=== PATIENT | male | born 1980 | race Hispanic/Latino ===

== ENCOUNTER 2024-06-15 22:25 | Emergency (ER) | payer OTHER ==
[~2024-06-15] VITALS: Ht 170.2 cm; Wt 113.4 kg
--- NOTE | 2024-06-15 22:30 | NUR ---
COVID, FLU AND STREP SWABS COLLECTED AND SENT
[2024-06-15 22:53] LABS: RAPID GROUP A STREP negative (NEGATIVE)
--- NOTE | 2024-06-15 22:54 | ERN ---
ED Note History of Present Illness Stated Complaint: HTN, HIGH BLOOD SUGAR, COUGH, CONGESTION Chief Complaint: Multiple Complaints Time Seen by MD: 22:48 Dictation: This is a 44-year-old male who presented to the emergency room stating that his blood pressure was high and sugar was high and he also has a cough and congestion. Apparently he started feeling sick since 06/13 2024 and developed a cough and chest congestion associated with generalized body aches and flu-like symptoms. He went to [place] where he was told that he had a blood pressure of 180 systolic and his sugar was also high but he does not recall all the details. Given that he came into get checked out He admits to small amounts of mucopurulent sputum but no hemoptysis. No new pets at home. His son was sick also Temperature was 100.6 pulse 103 respirations 20 blood pressure 101/82 with a pulse oximetry of 98% on room air He admits to being a daily cigarette smoker Allergies: Coded Allergies: No Known Allergies (Unverified Allergy, Unknown, 06/15/24) Home Meds Active Scripts Ipratropium/Albuterol Sulfate (Combivent Respimat Inhal [place]) 20 Mcg-100 Mcg/Ac tuation Aer.w.adap, 2 PUFF IH TID, #4 GM 0 Refills Prov:VIVIANA CORONEL MD 06/16/24 Prednisone (Prednisone) 50 Mg Tablet, 50 MG PO DAILY for 5 Days, #5 TAB 0 Refills Prov:VIVIANA CORONEL MD 06/16/24 Levofloxacin (Levofloxacin) 750 Mg Tablet, 1 TAB PO DAILY for 7 Days, #7 TAB 0 Refills Prov:VIVIANA CORONEL MD 06/16/24 Past Medical History Past Medical History: No Pertinent History Surgical History: None Social History: Smokers RN Note Reviewed/Agreed w/PFSH: Yes Review of System Dictation Constitutional: Negative for fever,chills, and weight loss, generalized body aches Eyes: Negative for injury, pain,redness, and discharge ENT: Negative for injury,pain or swelling Cardiovascular: Negative for chest pain, palpitations, and edema Respiratory: Negative for shortness of breath, positive cough, and wheezing, Abdomen/GI: Negative for abdominal pain, nausea, vomiting, diarrhea, and constipation Back: Negative for injury and pain : Negative for injury, bleeding and discharge MS/Extremity: Negative for injury and deformity Skin: Negative for rash, and discoloration Neuro: Negative for headache, weakness, numbness, tingling, and seizure Psych: Negative for suicide ideation, homicidal ideation, and hallucinations Initial Vital Sign VS Vital Signs Date Time Temp Pulse Resp B/P (MAP) Pulse Ox O2 Delivery O2 Flow Rate FiO2 06/15/24 22:27 100.6 103 20 101/82 98 Room Air 06/16/24 00:35 0 21 Physical Exam Dictation General: awake, alert, NAD Head/Face: Normocephalic, atraumatic Eyes: PERRL, EOMI, vision at baseline ENT: oral cavity clear, TMs clear, no signs of infection Neck: Trachea midline, supple, no nuchal rigidity Cardiovascular: RRR, normal S1/S2, No MRGs, no JVD Respiratory: Decreased breath sounds bilaterally with end expiratory wheezes bilaterally Abdomen: Soft, non-tender, non-distended, normal bowel sounds, no guarding or rebound. Skin: Warm, dry, normal turgor, no rash MS/Extremity: Pulses equal, no cyanosis, neurovascular intact, FROM Neuro: COAx4, GCS 15, strength 5/5, CN 2-12 intact, normal cerebellar exam, normal gait, Psych: Normal behavior, mood, and affect normal Extremities-trace edema without any palpable cords, Homans sign is negative Results (Laboratory/Radiology) Laboratory/Radiology Laboratory Tests Test 06/15/24 22:28 06/15/24 23:48 Influenza Type A Antigen Negative For Type A Influenza Type B Antigen Negative For Type B SARS-CoV-2, RNA, NAAT NEGATIVE SARS CoV-2 Group A Streptococcus Rapid negative (NEGATIVE) White Blood Count 7.8 K/uL (4.8-10.8) Red Blood Count 4.36 MIL/uL (4.50-6.20) L Hemoglobin 13.8 g/dL (14.0-18.0) L Hematocrit 41.3 % (42-54) L Mean Corpuscular Volume 94.7 fL (79-99) Mean Corpuscular Hemoglobin 31.7 pg (27.0-33.0) Mean Corpuscular Hemoglobin Concent 33.4 g/dL (32.0-36.0) Red Cell Distribution Width 13.1 % (11.0-15.5) Platelet Count 181 K/uL (130-400) Mean Platelet Volume 11.2 fL (7.5-10.5) H Immature Granulocyte % (Auto) 0.3 % (0-1) Neutrophils (%) (Auto) 57.7 % (40.0-77.0) Lymphocytes (%) (Auto) 30.2 % (21.0-51.0) Monocytes (%) (Auto) 9.0 % (3.0-13.0) Eosinophils (%) (Auto) 2.3 % (0.0-8.0) Basophils (%) (Auto) 0.5 % (0.0-5.0) Neutrophils # (Auto) 4.5 K/uL (1.8-7.7) Lymphocytes # (Auto) 2.3 K/uL (1.0-4.8) Monocytes # (Auto) 0.7 K/uL (0.1-1.0) Eosinophils # (Auto) 0.18 K/uL (0.00-0.70) Basophils # (Auto) 0.04 K/uL (0.00-0.20) Absolute Immature Granulocyte (auto 0.02 K/uL (0-1) Nucleated Red Blood Cells 0.0 % (0.0-0.19) Sodium Level 139 mmol/L (136-145) Potassium Level 3.8 mmol/L (3.5-5.1) Chloride Level 103 mmol/L (101-111) Carbon Dioxide Level 31 mmol/L (21-32) Blood Urea Nitrogen 21 mg/dL (7-18) H Creatinine 1.1 mg/dL (0.5-1.3) Glomerular Filtration Rate Calc 84 mL/min (>90) Random Glucose 135 mg/dL (70-105) H Total Calcium 8.8 mg/dL (8.5-10.1) Labs Reviewed?: Yes ED Course ED Course Orders Procedure Category Date Status Time Covid Rna Naat LAB 06/15/24 Complete 22:27 Influenza Type A & B, LAB 06/15/24 Complete Rapid 22:27 Rapid (Group A Strep) LAB 06/15/24 Complete 22:27 Ipratropium/Albuterol PHA 06/16/24 Complete Neb (Duoneb) 00:00 Methylprednisolone PHA 06/16/24 Complete Succ 125mg (Solu-Medr 00:00 0.9%Nacl 1000ml (Ns PHA 06/15/24 Complete 1000ml) 23:31 Guaifenesin-Codeine PHA 06/16/24 Complete Syrup 5ml (Robitussi 00:00 Chest 1vw RAD 06/15/24 Resulted 23:31 Ipratropium/Albuterol PHA 06/16/24 Complete Neb (Duoneb) 00:00 Basic Metabolic Panel LAB 06/15/24 Complete 23:44 Cbc With Differential LAB 06/15/24 Complete 23:44 Levofloxacin 750mg PHA 06/16/24 Complete Tab (Levaquin 750mg T 00:30 Hydralazine 20mg Inj PHA 06/16/24 Complete (Apresoline 20mg In 01:30 Current Medications Medications (Trade) Dose Ordered Sig/Beth Route PRN Reason Start Time Stop Time Status Last Admin Dose Admin Albuterol (DUOneb) 1 UDVIAL ONCE ONCE IH 06/16/24 00:00 06/15/24 23:38 DC Albuterol (DUOneb) 1 udvial ONCE ONCE IH 06/16/24 00:00 06/16/24 00:01 DC 06/15/24 23:54 Guaifenesin/ Codeine Phosphate (RobiTUSSin AC 5 ML SYRUP) 10 ml ONCE ONCE PO 06/16/24 00:00 06/16/24 00:01 DC 06/15/24 23:40 Hydralazine HCl (APRESOLine 20MG INJ) 10 mg ONCE ONCE IV 06/16/24 01:30 06/16/24 01:31 DC 06/16/24 01:23 Levofloxacin (LEvaquIN 750MG TAB) 750 mg ONCE ONCE PO 06/16/24 00:30 06/16/24 00:31 DC 06/16/24 00:38 Methylprednisolone Sodium Succinate (Solu-medROL 125MG) 125 mg ONCE ONCE IVP 06/16/24 00:00 06/16/24 00:01 DC 06/15/24 23:51 Sodium Chloride 1,000 ml @ 1,000 mls/hr Q1H STAT IV 06/15/24 23:31 06/16/24 00:30 DC 06/15/24 23:51 Vital Signs Date Time Temp Pulse Resp B/P (MAP) Pulse Ox O2 Delivery O2 Flow Rate FiO2 06/16/24 02:05 88 19 152/84 96 Room Air* 0 21 06/16/24 00:35 98.4 96 16 179/119 95 Room Air* 0 21 06/15/24 23:54 95 18 06/15/24 22:27 100.6 103 20 101/82 98 Room Air We will perform diagnostic labs, advanced imaging and administer medications according to the patient's complaint. Once the results are available, will review and personally interpreted the labs to rule out any acute life- threatening emergency the trach require immediate intervention and treatment. I will then re-evaluate the patient after treatment and diagnostic exams have return to determine whether the patient requires any further testing, can safely be discharged home or need further admission to hospital for additional treatment and evaluation. Reviewed labs CBC is with a normal limits BNP 7 shows a BUN and creatinine of 21 and 1.1. Viral studies including influenza and COVID are all negative. Chest x-ray shows cardiomegaly and a patchy infiltrate in the right base. Radiology report is still pending at this time I updated the patient and spouse on available information and plan to continue antibiotics and steroids and bronchodilators. Patient was concerned about his blood pressure that shot up to 179/119. I explained to him that steroids stress of being in the ER all can increase the blood pressure. A dose of hydralazine and assess response 3:12 a.m. blood pressure improved significantly he also admits to feeling much improved since his arrival to the ER I counseled him extensively on smoking cessation and to set up an appointment with the primary care physician for routine health care Medical Decision Making MDM MDM: Differential diagnosis: Viral syndrome, influenza a, acute bronchitis, COPD with exacerbation, community-acquired pneumonia Rationale: Tests considered and ordered secondary to shared decision making include: Previous outside records reviewed: Old ER visits. Risk of complication and/or morbidity or mortality of patient management: None Medications-Per medication reconciliation Need for hospitalization: Patient does not meet criteria for hospitalization. Need for emergency major/minor surgery: No There are no social concerns with this patient. Prescription drug management Prescriptions will include symptomatic care Patient's prior external medical records from other ER visits were reviewed by me as indicated. Prior testing and results from previous visits were reviewed. Prior tests were taken into account with medical decision making and resource utilization, independent historian/historians were used to obtain complete medical history. I independently interpreted the test that were performed, results were reviewed by me and considered findings on radiology if ordered. Medical management and examination interpretation discussions were had by me with other qualified healthcare professionals as indicated for the patient's care. Problem List Problem List: (1) Pneumonia involving right lung (2) Community acquired pneumonia (3) Tobacco dependence (4) Acute kidney injury DX & DISP Disposition: Discharge Departure Impression: Primary Impression: Pneumonia involving right lung Additional Impressions: Community acquired pneumonia, Tobacco dependence, Acute kidney injury Condition: Stable Scripts Ipratropium/Albuterol Sulfate (Combivent Respimat Inhal [place]) 20 Mcg-100 Mcg/Actuation Aer.w.adap 2 PUFF IH TID, #4 GM 0 Refills Prov: VIVIANA CORONEL MD 06/16/24 Prednisone (Prednisone) 50 Mg Tablet 50 MG PO DAILY for 5 Days, #5 TAB 0 Refills Prov: VIVIANA CORONEL MD 06/16/24 Levofloxacin (Levofloxacin) 750 Mg Tablet 1 TAB PO DAILY for 7 Days, #7 TAB 0 Refills Prov: VIVIANA CORONEL MD 06/16/24 Additional Instructions: Patient and the caregiver have been informed of all the diagnostic tests and the imaging conducted during the today's visit to the emergency room and has verbalized understanding of the results I have personally reviewed and interpreted all diagnostic exams performed here in the ER today as well as the vital signs documented by the nursing staff. The patient is now being discharged to home and should follow up with the primary care physician or the specialist as directed by the ER staff. Follow-up with primary care provider in 1 to 2 days. Take medications as directed here in the emergency room. Okay to continue home medications unless otherwise discussed during your visit in the emergency room today. Return to your nearest emergency room if symptoms worsen or if there is no improvement. Call 911 if you need immediate assistance. Take Tylenol or Motrin over-the- counter as needed and if no contraindications are present. Increase oral hydration. A wound culture or urine culture was ordered here in the emergency room department please follow-up with primary care provider and advise them to get repeat ports from our facility. If you had any [place] wrap/splints that were applied here, please do not remove them until you see your primary care or specialty. Referrals: SELF,REFERRAL (PCP) VIVIANA CORONEL MD Jun 15, 2024 22:54
[2024-06-15 22:55] LABS: SARS-CoV-2, RNA, NAAT NEGATIVE SARS CoV-2 (NEGATIVE)
[2024-06-15 23:03] LABS: INFLUENZA TYPE A Negative For Type A (NEGATIVE); INFLUENZA TYPE B Negative For Type B (NEGATIVE)
[2024-06-15] MEDS: guaiFENesin-coDEINE 5 ML SYRUP PO ONE (23:40)
[2024-06-15] MEDS: Solu-medROL 125MG VIAL IVP ONE (23:51)
[2024-06-15] MEDS: 0.9%NACL 1000ML 1,000 ML IV STA (23:51)
[2024-06-15 23:54] VITALS: PULSE 95; RESP 18
[2024-06-15] MEDS: IpraTROPium/alBUTERol SULFATE 3 ML SOLUTION IH ONE (23:54)
[2024-06-15 23:56] LABS: BASOPHILS # (AUTO) 0.04 K/uL (0.00-0.20); BASOPHILS % (AUTO) 0.5 % (0.0-5.0); EOSINOPHILS # (AUTO) 0.18 K/uL (0.00-0.70); EOSINOPHILS % (AUTO) 2.3 % (0.0-8.0); HEMATOCRIT 41.3 % (42-54); IMMATURE GRANULOCYTE ABSOLUTE 0.02 K/uL (0-1); LYMPHOCYTES # (AUTO) 2.3 K/uL (1.0-4.8); LYMPHOCYTES % (AUTO) 30.2 % (21.0-51.0); MEAN CORPUSCULAR HEMOGLOBIN 31.7 pg (27.0-33.0); MEAN CORPUSCULAR HGB CONC 33.4 g/dL (32.0-36.0); MEAN CORPUSCULAR VOLUME 94.7 fL (79-99); MONOCYTES # (AUTO) 0.7 K/uL (0.1-1.0); NEUTROPHILS # (AUTO) 4.5 K/uL (1.8-7.7); NEUTROPHILS % (AUTO) 57.7 % (40.0-77.0); PLATELET COUNT (AUTO) 181 K/uL (130-400); RED BLOOD CELL COUNT(AUTO) 4.36 MIL/uL (4.50-6.20); RED CELL DISTRIBUTION WIDTH 13.1 % (11.0-15.5); WHITE BLOOD COUNT (AUTO) 7.8 K/uL (4.8-10.8)
[2024-06-16] MEDS ORDERED: IpraTROPium/alBUTERol SULFATE 3 ML SOLUTION IH ONE
[2024-06-16 00:11] LABS: CREATININE 1.1 mg/dL (0.5-1.3); POTASSIUM 3.8 mmol/L (3.5-5.1)
[2024-06-16] MEDS ORDERED: PRED50TA2 PO (00:29)
[2024-06-16] MEDS ORDERED: LEVO750T40 PO (00:29)
[2024-06-16] MEDS ORDERED: IPRA4AER IH (00:31)
[2024-06-16 00:35] VITALS: TEMP 98.4
[2024-06-16] MEDS: levoFLOXacin 750 MG TABLET PO ONE (00:38)
--- NOTE | 2024-06-16 01:22 | HMCIMG ---
CHEST 1VW HISTORY: Cough and congestion COMPARISON: None FINDINGS: A frontal projection of the chest was obtained. Mild bilateral pulmonary infiltrates are seen may be related to mild pulmonary vascular congestion with possible superimposed pneumonitis. The heart is enlarged. Degenerative changes are seen. No evidence of aortic calcification is seen. IMPRESSION: 1. Bilateral pulmonary infiltrates are seen suggestive of pulmonary vascular congestion with possible superimposed pneumonitis.
[2024-06-16] MEDS: hydrALAZine 20MG/ML VIAL IV ONE (01:23)
[2024-06-16 02:05] VITALS: BP 152/84; PULSE 88; RESP 19; O2SAT 96
== END 2024-06-16 02:49 | disposition home or self-care (01) ==
LOC: EDH 22:25
DX: J18.9 Pneumonia, unspecified organism (principal); N17.9 Acute kidney failure, unspecified; F17.200 Nicotine dependence, unspecified, uncomplicated; I10 Essential (primary) hypertension; Z20.822 Contact with and (suspected) exposure to COVID-19; Z79.52 Long term (current) use of systemic steroids
CPT/HCPCS: 99284; 96374; 71045; 87635; 96361; 80048; 85025; 87880; 87804 ×2; 36415; 94640; 96375; J2919; J7030; J0360